=== PATIENT | female | born 1925 | race Hispanic/Latino ===

== ENCOUNTER 2016-11-05 19:48 | Emergency (ER) | payer MEDICARE, BC ==
[2016-11-05 19:49] VITALS: PULSE 89; BMI 18.8
[2016-11-05] MEDS ORDERED: Tramadol 25 mg PO STA (20:54)
--- NOTE | 2016-11-05 21:31 | C.PDOC ---
History Of Present Illness 89 yo female come in accompanied by son for evaluation of facial contusion, Left knee pain developed 8 days ago after sustained fall. Pt reports, " im 89 and Im getting dizzy a lot and fall frequently". As per pt, " was in bathroom, urinated, got up and felt dizzy and fell down face first and on my knees". Pt admits, left side of face was bruised and swollen that improved with time. Gradually developed left knee pain, constant, severe, although was able to ambulate with some discomfort over Left knee and assistance of cane. Otherwise, pt denies LOC, syncope, denies severe headache, new visual changes, focal deficits, neck pain, CP, SOB, abd. pain, vomiting, denies obvious deformity, new weakness, sensory or vascular deficits to B/L UEs and LEs. At the time of evaluation, pt is AAO#3, appears comfortable, not n any apparent distress. HTN noted on triage, pt admits, takes her BP medication daily. As per son, " under lots of stress now and in pain". Time Seen by Provider: 11/05/16 20:28 Chief Complaint (Nursing): Lower Extremity Problem/Injury History Per: Patient History/Exam Limitations: no limitations Onset/Duration Of Symptoms: Days (8) Past Medical History Reviewed: Historical Data, Nursing Documentation, Vital Signs Vital Signs: Last Vital Signs Temp 98 F 11/05/16 22:37 Pulse 80 11/05/16 22:37 Resp 18 11/05/16 22:37 BP 164/82 H 11/05/16 22:37 Pulse Ox 99 11/05/16 23:02 - Medical History PMH: Arthritis, HTN, Hypercholesterolemia, Hypothyroidism - [facility] Procedures BYPASS SIGMOID COLON TO CUTANEOUS, OPEN APPROACH (02/18/16) RESECTION OF LEFT LARGE INTESTINE, OPEN APPROACH (02/18/16) Family History: States: No Known Family Hx - Social History Hx Tobacco Use: No Hx Alcohol Use: No Hx Substance Use: No - Immunization History Hx Tetanus Toxoid Vaccination: No Hx Influenza Vaccination: No Hx Pneumococcal Vaccination: No Review Of Systems Except As Marked, All Systems Reviewed And Found Negative. Eyes: Negative for: Vision Change Cardiovascular: Negative for: Chest Pain Respiratory: Negative for: Shortness of Breath Gastrointestinal: Negative for: Abdominal Pain Musculoskeletal: Positive for: Other ((+) Left knee pain ). Negative for: Neck Pain Neurological: Negative for: Weakness, Numbness, Headache Physical Exam - Physical Exam Appears: Well, Non-toxic, No Acute Distress Skin: Warm, No Rash Head: Normacephalic, No Tenderness, No Abrasion, Other (trace ecchymoses over Left zygoma. NO palpable deformity.) Eye(s): bilateral: PERRL Ear(s): Bilateral: Normal Nose: No Discharge, No Epistaxis, No Deformity Oral Mucosa: Moist, No Drooling Tongue: Normal Appearing Lips: Normal Appearing Neck: No Step Off Deformity, Supple Chest: Symmetrical, No Deformity, No Tenderness Respiratory: No Decreased Breath Sounds, No Accessory Muscle Use, No Stridor, No Wheezing Gastrointestinal/Abdominal: Soft, No Tenderness, No Distention Back: No Vertebral Tenderness, Paraspinal Tenderness (mild Left sided lumbar paraspinal tenderness. No midline tenderness, no skin changes.) Extremity: Tenderness (Left knee diffuse tenderness with mod edema, warmth. Discomfort on Left knee flexion due to pain. No erythema, no palpable deformity , no neurovascular deficits distally to injury.), No Deformity Neurological/Psych: Oriented x3, Normal Speech, Normal Motor, Normal Sensation, Normal Reflexes ED Course And Treatment O2 Sat by Pulse Oximetry: 99 Pulse Ox Interpretation: Normal - CT Scan/US CT - Cervical Spine Other Rad Studies (CT/US): Radiology Report Reviewed CT/US Interpretation: FINDINGS: Vertebrae: There is exaggeration of the cervical lordosis. There is no prevertebral soft tissue. swelling. Bony structures are diffusely osteopenic. There are no fractures. There are degenerative. changes at all levels. There is narrowing of the predental space. There is ankylosis of the C2, C3. and C4 facet joints. There is marked narrowing of the C4-5 facet joints. There is ankylosis of C5/C6. facet joints on the right. There is narrowing of all remaining facet joints. There is disc space. narrowing at all levels.Spinous processes align in the expected fashion. Discs/spinal canal/neural foramina: See above. Soft tissues: See above. Thyroid: Thyroid is not optimally demonstrated. Lung apices: There is scarring at the lung apices. IMPRESSION: Osteopenia and degenerative change no fracture seen. Thank you for allowing us to participate in the care of your patient. Dictated and Authenticated by: Leatha Reina MD. 2016 10:40 PM Eastern Time ([place] & [place]) CT - Lower Extremity Other Rad Studies (CT/US): Radiology Report Reviewed CT/US Interpretation: FINDINGS: A small knee joint effusion is present. There are degenerative changes in the osseous structures. Extensive osteophyte formation is present. Joint space narrowing of the medial femoral tibial component. No fractures. No dislocations. No osseous lesions. Vascular calcifications. IMPRESSION: No acute fractures. Thank you for allowing us to participate in the care of your patient. Dictated and Authenticated by: Eileen Tamez MD. 11/05/2016 10:55 PM Eastern Time ([place] & [place]) CT - Head Other Rad Studies (CT/US): Radiology Report Reviewed CT/US Interpretation: Orbits: Orbital contents are unremarkable. IMPRESSION: Atrophy and small vessel disease, no acute intracranial abnormality. Thank you for allowing us to participate in the care of your patient. Dictated and Authenticated by: Leatha Reina MD. 11/05/2016 10:29 PM Eastern Time ([place] & [place]) CT - Maxillofacial Other Rad Studies (CT/US): Radiology Report Reviewed CT/US Interpretation: Orbits: Orbital contents are unremarkable. Sinuses: There is an air-fluid level in the right sphenoid sinus. There is minimal mucoperiosteal. thickening in ethmoid air cells. Mastoid air cells: Middle ears and mastoids are well-aerated. Dental: Patient is edentulous. Brain: There are atrophic intracranial changes. IMPRESSION: No acute osseous abnormality. Additional findings as described above. Thank you for allowing us to participate in the care of your patient. Dictated and Authenticated by: Leatha Reina MD. 11/05/2016 10:35 PM Eastern Time ([place] & [place]) Progress Note: On re-evaluation, pt is afebrile, hemodynamiclay stable. Non- toxic. head: (+) trace ecchymoses left upper face. NO deformity. Eyes: no pain or limitation on extraocula movement, no deformity. Neck: (-) midline tenderness. Lungs: CTA B/L, BS equal B/L. ABd: benign. Left LE: Exam c/w knee contusion, no deformity, no neurovascular deficits. Imaging review and c/ w with contusion, no acute fx or other acute abnormalities noted. Pt has clinical findings c/w head injury, facial contusion, Left knee contusion/DJD. Knee immobilizer applied. Pt and family advised and ref. to F/u with PMD, Ortho in 2-3 days for re-eval. return to ED if any worsneing or new changes. Medical Decision Making Medical Decision Making: PLAN: * CT - Cervical Spine, Lower Extremity, Head, Maxillofacial * Tramadol PO Disposition Counseled Patient/Family Regarding: Studies Performed, Diagnosis, Need For Followup, Rx Given - Disposition Referrals: Naina Mac MD [Medical Doctor] - Joao German III, MD [Staff Provider] - Disposition: HOME/ ROUTINE Disposition Time: 23:00 Condition: STABLE Additional Instructions: bedrest for 1 week RICE-rest,ice,compression, elevation Knee immobilizer for 1-2 weeks take tylenol as need for pain Follow up with PMD, Orthopedist in 1-2 days for re-evaluation. Return to ED if any worsening or new changes. Prescriptions: traMADol [Ultram] 25 mg PO TID #10 tab Instructions: Knee Sprain (ED), Head Injury (ED), Facial Contusion (ED) - Clinical Impression Clinical Impression: Head injury, Facial contusion, Knee contusion - PA / DRAGGER OUT / Resident Statement MD/DO has reviewed & agrees with the documentation as recorded. - Scribe Statement The provider has reviewed the documentation as recorded by the Scribe Tanya Magallon All medical record entries made by the Scribe were at my direction and personally dictated by me. I have reviewed the chart and agree that the record accurately reflects my personal performance of the history, physical exam, medical decision making, and the department course for this patient. I have also personally directed, reviewed, and agree with the discharge instructions and disposition.
--- NOTE | 2016-11-05 22:29 | CT ---
EXAM: CT Head Without Intravenous Contrast CLINICAL HISTORY: 89 years old, female; Pain and injury or trauma; Fall; Initial encounter; Concussion / head injury; Headache and other: Right frontal bone TECHNIQUE: Axial computed tomography images of the head/brain without intravenous contrast. This CT exam was performed using one or more of the following dose reduction techniques: automated exposure control, adjustment of the mA and/or kV according to patient size, and/or use of iterative reconstruction technique. EXAM DATE/TIME: 11/05/2016 8:51 PM COMPARISON: There are no prior studies for comparison. FINDINGS: Brain: There is dilatation of sulci gyri and ventricles. There is no midline shift. There is decreased attenuation in periventricular white matter. There are no focal masses. There are no focal hemorrhages. Beard-white differentiation is visualized. Ventricles: See above. Bones: Cranial vault is intact. Soft tissues: There is minimal right frontal scalp bruising Sinuses: There is no acute sinusitis. Ears and mastoids: Middle ears and mastoids are unremarkable. Orbits: Orbital contents are unremarkable. IMPRESSION: Atrophy and small vessel disease, no acute intracranial abnormality
--- NOTE | 2016-11-05 22:36 | CT ---
EXAM: CT Maxillofacial Without Intravenous Contrast CLINICAL HISTORY: 89 years old, female; Pain and injury or trauma; Fall; Initial encounter; Concussion /head injury; Without loss of consciousness; Other: Right frontal bone TECHNIQUE: Axial computed tomography images of the face without intravenous contrast. This CT exam was performed using one or more of the following dose reduction techniques: automated exposure control, adjustment of the mA and/or kV according to patient size, and/or use of iterative reconstruction technique. Coronal and sagittal reformatted images were created and reviewed. EXAM DATE/TIME: 11/05/2016 9:23 PM COMPARISON: There are no prior studies for comparison. FINDINGS: Bones/joints: There age-indeterminate nasal bone fractures. There is no nasal soft tissue swelling. No acute facial bone fractures are identified. There degenerative changes of the temporomandibular joints. There degenerative changes about the mandibular symphysis. There is exaggeration of the cervical lordosis. There are degenerative changes in the cervical spine. Soft tissues: There is no focal soft tissue swelling. Orbits: Orbital contents are unremarkable. Sinuses: There is an air-fluid level in the right sphenoid sinus. There is minimal mucoperiosteal thickening in ethmoid air cells. Mastoid air cells: Middle ears and mastoids are well-aerated. Dental: Patient is edentulous. Brain: There are atrophic intracranial changes. IMPRESSION: No acute osseous abnormality Additional findings as described above.
[2016-11-05 22:39] VITALS: BP 164/82; PULSE 80; RESP 18; TEMP 98
--- NOTE | 2016-11-05 22:40 | CT ---
EXAM: CT Cervical Spine Without Intravenous Contrast CLINICAL HISTORY: 89 years old, female; Pain; Neck pain; Additional info: Injury TECHNIQUE: Axial computed tomography images of the cervical spine without intravenous contrast. This CT exam was performed using one or more of the following dose reduction techniques: automated exposure control, adjustment of the mA and/or kV according to patient size, and/or use of iterative reconstruction technique. Coronal and sagittal reformatted images were created and reviewed. EXAM DATE/TIME: 11/05/2016 8:51 PM COMPARISON: [place] - DENSITOMETRY HIP SPINE 05/31/2015 12:00:00 PM FINDINGS: Vertebrae: There is exaggeration of the cervical lordosis. There is no prevertebral soft tissue swelling. Bony structures are diffusely osteopenic. There are no fractures. There are degenerative changes at all levels. There is narrowing of the predental space. There is ankylosis of the C2, C3 and C4 facet joints. There is marked narrowing of the C4-5 facet joints. There is ankylosis of C5/C6 facet joints on the right. There is narrowing of all remaining facet joints. There is disc space narrowing at all levels.Spinous processes align in the expected fashion. Discs/spinal canal/neural foramina: See above. Soft tissues: See above. Thyroid: Thyroid is not optimally demonstrated. Lung apices: There is scarring at the lung apices. IMPRESSION: Osteopenia and degenerative change no fracture seen
[2016-11-05 22:45] VITALS: O2SAT 99
--- NOTE | 2016-11-05 22:56 | CT ---
EXAM: CT Left Lower Extremity Without Intravenous Contrast, Knee CLINICAL HISTORY: 89 years old, female; Pain; Knee; Left; Additional info: Left knee injury TECHNIQUE: Axial computed tomography images of the left knee without intravenous contrast. This CT exam was performed using one or more of the following dose reduction techniques: automated exposure control, adjustment of the mA and/or kV according to patient size, and/or use of iterative reconstruction technique. Coronal and sagittal reformatted images were created and reviewed. EXAM DATE/TIME: 11/05/2016 8:51 PM COMPARISON: No relevant prior studies available. FINDINGS: A small knee joint effusion is present. There are degenerative changes in the osseous structures. Extensive osteophyte formation is present. Joint space narrowing of the medial femoral tibial component. No fractures. No dislocations. No osseous lesions. Vascular calcifications. IMPRESSION: No acute fractures.
== END 2016-11-05 23:20 | disposition home or self-care (01) ==
LOC: C.ER 19:48
DX: S00.83XA Contusion of other part of head, initial encounter (principal); S80.02XA Contusion of left knee, initial encounter; W18.39XA Other fall on same level, initial encounter; Z91.81 History of falling; Y92.002 Bathroom of unspecified non-institutional (private) residence as the place of occurrence of the external cause

== ENCOUNTER 2017-02-28 15:44 | Inpatient (IN) | payer BC, MEDICARE ==
[2017-02-28 15:44] VITALS: BMI 18.8
--- NOTE | 2017-02-28 16:28 | C.PDOC ---
History Of Present Illness <Brenda Shook - Last Filed: 02/28/17 18:52> <Katie Dickson - Last Filed: 02/28/17 20:58> 89 yr old female presents to the ER with complaints of mid sternal chest pain since last night around 10pm. Patient states the pain radiates to back and worsened with deep breathing. Patient denies trauma, fever, diaphoresis, syncope , nausea, vomiting, weakness or numbness. (Brenda Shook) History Per: Patient History/Exam Limitations: no limitations Onset/Duration Of Symptoms: Days <Brenda Shook - Last Filed: 02/28/17 18:52> <Katie Dickson - Last Filed: 02/28/17 20:58> Time Seen by Provider: 02/28/17 16:04 Chief Complaint (Nursing): Chest Pain Past Medical History Reviewed: Historical Data, Nursing Documentation, Vital Signs - Medical History PMH: Arthritis, HTN, Hypercholesterolemia, Hypothyroidism Family History: States: No Known Family Hx - Social History Hx Tobacco Use: No Hx Alcohol Use: No Hx Substance Use: No - Immunization History Hx Tetanus Toxoid Vaccination: No Hx Influenza Vaccination: No Hx Pneumococcal Vaccination: No <Brenda Shook - Last Filed: 02/28/17 18:52> Review Of Systems Except As Marked, All Systems Reviewed And Found Negative. Constitutional: Negative for: Fever Cardiovascular: Positive for: Chest Pain (Mid sternal chest pain radiating to back) Gastrointestinal: Negative for: Nausea, Vomiting Neurological: Negative for: Weakness, Numbness <Brenda Shook - Last Filed: 02/28/17 18:52> Physical Exam - Physical Exam Appears: Non-toxic, No Acute Distress, Chronically Ill, Other ((+) Cachectic appearing) Skin: Warm, Dry, No Rash Head: Atraumatic, Normacephalic Eye(s): bilateral: Normal Inspection Oral Mucosa: Moist Neck: Normal ROM, Supple Chest: Symmetrical, No Tenderness Cardiovascular: Rhythm Irregular, No Friction Rub, No Murmur Respiratory: Normal Breath Sounds, No Rales, No Rhonchi, No Wheezing Gastrointestinal/Abdominal: Normal Exam, Soft, No Tenderness, No Guarding, No Rebound Back: No CVA Tenderness, No Vertebral Tenderness Extremity: Normal ROM, No Calf Tenderness, No Swelling Neurological/Psych: Oriented x3, Normal Speech, Normal Motor, Normal Sensation Gait: Steady <Brenda Shook - Last Filed: 02/28/17 18:52> ED Course And Treatment - Laboratory Results Result Diagrams: 02/28/17 16:52 02/28/17 16:52 ECG: Interpreted By Me, Viewed By Me ECG Rhythm: Atrial Fibrillation Interpretation Of ECG: LVH. Rate From EC (BPM) O2 Sat by Pulse Oximetry: 100 (RA) Pulse Ox Interpretation: Normal <Brenda Shook - Last Filed: 02/28/17 18:52> - Laboratory Results Result Diagrams: 02/28/17 16:52 02/28/17 16:52 <Katie Dickson - Last Filed: 02/28/17 20:58> Medical Decision Making <Brenda Shook - Last Filed: 02/28/17 18:52> <Katie Dickson - Last Filed: 02/28/17 20:58> Medical Decision Making: PLAN: * CXR * EKG * Troponin * CBC * CMP * BNP The patient has a history of Afib and has not been taking her Digoxin. The patient is rate controlled in the 90's. The patient was found to be hypokalemic , potassium given. CT chest was ordered to rule out PE. (Brenda Shook) Disposition - Disposition Disposition Time: 18:53 <Brenda Shook - Last Filed: 02/28/17 18:52> Discussed With : Ulysses Torres Comment: accepted the pt on her service and took over the care at 8:57 PM Doctor Will See Patient In The: Hospital Counseled Patient/Family Regarding: Studies Performed, Smoking Cessation - POA Present On Arrival: Poor Glycemic Control <Katie Dickson - Last Filed: 02/28/17 20:58> - Disposition Disposition: HOSPITALIZED Condition: FAIR Forms: [facility] (Greenlandic) - Clinical Impression Clinical Impression: Hypokalemia, Chest pain, Atrial fibrillation, Hiatal hernia - PA / PHYSIOTHERAPIST'S ASSISTANT / Resident Statement MD/DO has reviewed & agrees with the documentation as recorded. - Scribe Statement The provider has reviewed the documentation as recorded by the Scribe <Brenda Shook - Last Filed: 02/28/17 18:52> <Katie Dickson - Last Filed: 02/28/17 20:58> - Scribe Statement Tanya Magallon All medical record entries made by the Scribe were at my direction and personally dictated by me. I have reviewed the chart and agree that the record accurately reflects my personal performance of the history, physical exam, medical decision making, and the department course for this patient. I have also personally directed, reviewed, and agree with the discharge instructions and disposition. (Brenda Shook) Physician Patient Turnover Patient Signed Over To: Katie Dickson Handoff Comments: Pending CT chest and disposition <Brenda Shook - Last Filed: 02/28/17 18:52> Decision To Admit <Brenda Shook - Last Filed: 02/28/17 18:52> - Pt Status Changed To: Hospital Disposition Of: Observation - . Bed Request Type: Telemetry Admitting Physician: Ulysses Torres <Katie Dickson - Last Filed: 02/28/17 20:58> - . Patient Diagnosis: Hypokalemia, Chest pain, Atrial fibrillation, Hiatal hernia
[2017-02-28 16:57] LABS: BASO % 0.3 % (0.0-2.0); HEMATOCRIT 37.4 % (34.0-47.0); LYMPH # 0.7 K/uL (1.0-4.3); LYMPH % 7.7 % (20.0-40.0); MEAN CELL VOLUME 85.8 fL (81.0-99.0); MEAN CORPUSCULAR HEMOGLOBIN 29.6 pg (27.0-31.0); MEAN CORPUSCULAR HGB CONC 34.5 g/dL (33.0-37.0); MEAN PLATELET VOLUME 7.7 fL (7.2-11.7); MONO # 0.8 K/uL (0.0-0.8); MONO % 8.9 % (0.0-10.0); PLATELET COUNT 286 K/uL (130-400); RED CELL DISTRIBUTION WIDTH 14.9 % (11.5-14.5); WHITE BLOOD COUNT 9.2 K/uL (4.8-10.8)
[2017-02-28 17:10] LABS: ALB/GLOB RATIO 1.1 (1.0-2.1); ALKALINE PHOSPHATASE 58 U/L (38-126); ALT/SGPT 18 U/L (9-52); AST/SGOT 23 U/L (14-36); BLOOD UREA NITROGEN 12 mg/dL (7-17); CALCIUM 9.1 mg/dl (8.6-10.4); CARBON DIOXIDE 32 mmol/L (22-30); CHLORIDE 93 mmol/L (98-107); GFR AFRICAN-AMERICAN > 60; GLUCOSE,RANDOM 150 mg/dL (65-105); POTASSIUM 2.7 mmol/L (3.6-5.2); SODIUM 138 mmol/L (132-148); TOTAL PROTEIN 7.9 g/dL (6.3-8.3)
[2017-02-28] MEDS ORDERED: Potassium Chloride 20 mEq ER Tab PO STA (17:15)
[2017-02-28] MEDS ORDERED: Iodixanol 320 MG/ML 100 ML BOTTLE IV ONE (17:42)
--- NOTE | 2017-02-28 17:44 | RAD ---
PROCEDURE: CHEST RADIOGRAPH, 1 VIEW HISTORY: chest pain COMPARISON: 02/25/2016 FINDINGS: LUNGS: No pulmonary infiltrate. PLEURA: No pneumothorax or pleural fluid seen. CARDIOVASCULAR: Normal heart size. Large hiatal hernia. OSSEOUS STRUCTURES: No significant abnormalities. VISUALIZED UPPER ABDOMEN: Normal. OTHER FINDINGS: None. IMPRESSION: No acute infiltrate. Large hiatal hernia.
[2017-02-28] MEDS ORDERED: Aspirin 325 mg EC Tablets PO ONE (17:54)
[2017-02-28] MEDS ORDERED: Potassium Chloride 20 mEq ER Tab PO ONE (17:54)
[2017-02-28 18:01] LABS: NEUTROPHIL 84 % (50-75); TOTAL CELLS COUNTED 100
--- NOTE | 2017-02-28 20:01 | CT ---
EXAM: CT Angiography Chest With Intravenous Contrast CLINICAL HISTORY: 89 years old, female; Pain; Chest wall pain; Additional info: Chest, pleuritic pain TECHNIQUE: Axial computed tomographic angiography images of the chest with intravenous contrast using pulmonary embolism protocol. All CT scans at this facility use one or more dose reduction techniques, viz.: automated exposure control; ma/kV adjustment per patient size (including targeted exams where dose is matched to indication; i.e. head); or iterative reconstruction technique. MIP reconstructed images were created and reviewed. Coronal and sagittal reformatted images were created and reviewed. CONTRAST: 100 mL of VISIPAQUE administered intravenously. COMPARISON: There are no prior studies for comparison. Exam Date/Time: 02/28/2017 4:45 PM FINDINGS: Heart, Aorta and Pulmonary arteries: The heart is mildly enlarged. Aortic caliber is normal. There are calcifications in the arch. There are coronary artery calcifications. Main pulmonary artery is normal in caliber. Right pulmonary artery is mildly dilated, 2.5 cm in diameter. There is only mild prominence of the left main pulmonary artery, 1.9 cm in diameter. The There are no pulmonary emboli. Lungs and pleural spaces: Trachea and main bronchi are patent. Lungs are hyperinflated. There is apical pleural-parenchymal scarring bilaterally. There is compressive atelectasis at both lung bases. There is pleural thickening bilaterally. There is nodular thickening along the fissures bilaterally. There are no effusions. Mediastinum: The esophagus is unremarkable. There is a very large hiatal hernia. Majority of the stomach is intrathoracic. There is colon in the hiatal hernia. There is no pathologic mediastinal or hilar adenopathy Thyroid: Thyroid is not optimally demonstrated. Bones/joints: There is exaggeration of the thoracic kyphosis. There is an incompletely imaged convex left thoracolumbar curve. Bony structures are osteopenic. There are degenerative changes in the spine. Distortion of the thoracic cage limits evaluation of the ribs. No acute displaced fractures are identified. Soft tissues: unremarkable Upper abdomen: Areas a cyst in the right lobe of the liver. IMPRESSION: Large hiatal hernia containing the majority of the stomach and portion of the transverse colon with adjacent bilateral lower lobe compressive atelectasis; mild cardiomegaly and atherosclerotic disease, no aneurysm, dissection or pulmonary embolus; kyphoscoliosis, osteopenia and degenerative change Additional findings as described above.
[2017-02-28 23:06] LABS: BLOOD UREA NITROGEN 12 mg/dL (7-17); CALCIUM 8.6 mg/dl (8.6-10.4); CARBON DIOXIDE 31 mmol/L (22-30); CHLORIDE 97 mmol/L (98-107); GFR AFRICAN-AMERICAN > 60; GLUCOSE,RANDOM 157 mg/dL (65-105); MAGNESIUM 1.4 mg/dL (1.6-2.3); POTASSIUM 3.6 mmol/L (3.6-5.2); SODIUM 137 mmol/L (132-148)
[2017-03-01] MEDS: Levothyroxine 75 MCG TAB PO SCH (06:28)
[2017-03-01] MEDS: Magnesium Sulfate 1 gm in D5W 1 GM/100 ML BAG IVPB SCH ×2 (12:21→13:18)
--- NOTE | 2017-03-01 13:24 | CP.PCM.PN ---
Subjective - Date & Time of Evaluation Date of Evaluation: 03/01/17 Time of Evaluation: 12:30 - Subjective Subjective: H&P dictated #[id number] Objective - Vital Signs/Intake and Output Vital Signs (last 24 hours): Temp Pulse Resp BP Pulse Ox 98.8 F 74 18 113/66 96 03/01/17 08:05 03/01/17 13:20 03/01/17 08:05 03/01/17 13:20 03/01/17 08:05 Intake and Output: 03/01/17 03/01/17 06:59 18:59 Intake Total 200 Balance 200 - Medications Medications: Current Medications Aspirin (Ecotrin) 81 mg PO DAILY [facility] Last Admin: 03/01/17 10:21 Dose: 81 mg Digoxin (Lanoxin) 0.125 mg PO DAILY@1800 [facility] Diltiazem HCl (Cardizem) 30 mg PO Q8 [facility] Last Admin: 03/01/17 13:20 Dose: 30 mg Levothyroxine Sodium (Synthroid) 75 mcg PO DAILY@0630 [facility] Last Admin: 03/01/17 06:28 Dose: 75 mcg Pantoprazole Sodium (Protonix Inj) 40 mg IVP DAILY [facility] Last Admin: 03/01/17 10:20 Dose: 40 mg Pneumococcal Polyvalent Vaccine (Pneumovax 23 Vaccine) 0.5 ml IM .ONCE ONE Stop: 03/03/17 10:01 Rosuvastatin Calcium (Crestor) 10 mg PO HS [facility] - Labs Labs: 02/28/17 22:52 PT 11.1 SECONDS (9.7-12.2) 02/28/17 16:52 INR 1.0 02/28/17 16:52 APTT 28 SECONDS (21-34) 02/28/17 16:52
[2017-03-01] MEDS: Digoxin 125 mcg (0.125 mg) Tab PO SCH (17:34)
--- NOTE | 2017-03-01 19:58 | CP.PCM.CON ---
History of Present Illness - History of Present Illness History of Present Illness: Reason For Consultation: Chest Pain and A Fib 89 yr old female presents to the ER with complaints of mid sternal chest pain since last night around 10pm. Patient states the pain radiates to back and worsened with deep breathing. Patient denies trauma, fever, diaphoresis, syncope , nausea, vomiting, weakness or numbness. Past Medical History Reviewed: Historical Data, Nursing Documentation, Vital Signs - Medical History PMH: Arthritis, HTN, Hypercholesterolemia, Hypothyroidism Family History: States: No Known Family Hx - Social History Hx Tobacco Use: No Hx Alcohol Use: No Hx Substance Use: No - Immunization History Hx Tetanus Toxoid Vaccination: No Hx Influenza Vaccination: No Hx Pneumococcal Vaccination: No Review Of Systems Except As Marked, All Systems Reviewed And Found Negative. Constitutional: Negative for: Fever Cardiovascular: Positive for: Chest Pain (Mid sternal chest pain radiating to back) Gastrointestinal: Negative for: Nausea, Vomiting Neurological: Negative for: Weakness, Numbness Physical Exam - Physical Exam Appears: Non-toxic, No Acute Distress, Chronically Ill, Other ((+) Cachectic appearing) Skin: Warm, Dry, No Rash Head: Atraumatic, Normacephalic Eye(s): bilateral: Normal Inspection Oral Mucosa: Moist Neck: Normal ROM, Supple Chest: Symmetrical, No Tenderness Cardiovascular: Rhythm Irregular, No Friction Rub, No Murmur Respiratory: Normal Breath Sounds, No Rales, No Rhonchi, No Wheezing Gastrointestinal/Abdominal: Normal Exam, Soft, No Tenderness, No Guarding, No Rebound Back: No CVA Tenderness, No Vertebral Tenderness Extremity: Normal ROM, No Calf Tenderness, No Swelling Neurological/Psych: Oriented x3, Normal Speech, Normal Motor, Normal Sensation Gait: Steady Past Patient History - Infectious Disease Hx of Infectious Diseases: None - Past Medical History & Family History Past Medical History?: Yes - Past Social History Smoking Status: Never Smoked - CARDIAC Hx Cardiac Disorders: Yes Hx Hypercholesterolemia: Yes Hx Hypertension: Yes - PULMONARY Hx Respiratory Disorders: No - NEUROLOGICAL Hx Neurological Disorder: No - HEENT Hx HEENT Problems: No - RENAL Hx Chronic Kidney Disease: No - ENDOCRINE/METABOLIC Hx Endocrine Disorders: Yes Hx Hypothyroidism: Yes - HEMATOLOGICAL/ONCOLOGICAL Hx Blood Disorders: No - INTEGUMENTARY Hx Dermatological Problems: No - MUSCULOSKELETAL/RHEUMATOLOGICAL Hx Musculoskeletal Disorders: Yes Hx Arthritis: Yes Hx Falls: Yes - GASTROINTESTINAL Hx Gastrointestinal Disorders: Yes Hx Diverticulitis: Yes Other/Comment: left colostomy - GENITOURINARY/GYNECOLOGICAL Hx Genitourinary Disorders: No - PSYCHIATRIC Hx Psychophysiologic Disorder: No Hx Substance Use: No - SURGICAL HISTORY Hx Surgeries: Yes Other/Comment: colon resection with left colostomy - ANESTHESIA Hx Anesthesia: Yes Hx Anesthesia Reactions: No Hx Malignant Hyperthermia: No Meds Allergies/Adverse Reactions: Allergies Allergy/AdvReac Type Severity Reaction Status Date / Time Sulfa (Sulfonamide Allergy Mild Verified 11/05/16 20:17 Antibiotics) - Medications Medications: Current Medications Aspirin (Ecotrin) 81 mg PO DAILY [facility] Last Admin: 03/01/17 10:21 Dose: 81 mg Digoxin (Lanoxin) 0.125 mg PO DAILY@1800 [facility] Last Admin: 03/01/17 17:34 Dose: 0.125 mg Diltiazem HCl (Cardizem) 30 mg PO Q8 [facility] Last Admin: 03/01/17 13:20 Dose: 30 mg Heparin Sodium (Porcine) (Heparin) 3,000 units SC Q12 [facility] Levothyroxine Sodium (Synthroid) 75 mcg PO DAILY@0630 [facility] Last Admin: 03/01/17 06:28 Dose: 75 mcg Pantoprazole Sodium (Protonix Inj) 40 mg IVP DAILY [facility] Last Admin: 03/01/17 10:20 Dose: 40 mg Pneumococcal Polyvalent Vaccine (Pneumovax 23 Vaccine) 0.5 ml IM .ONCE ONE Stop: 03/03/17 10:01 Rosuvastatin Calcium (Crestor) 10 mg PO [facility] Results - Vital Signs Recent Vital Signs: Last Vital Signs Temp 98.8 F 03/01/17 08:05 Pulse 80 03/01/17 18:00 Resp 18 03/01/17 08:05 BP 113/66 03/01/17 13:20 Pulse Ox 96 03/01/17 08:05 - Labs Result Diagrams: 02/28/17 16:52 02/28/17 22:52 Labs: Laboratory Results - last 24 hr 02/28/17 03/01/17 03/01/17 22:52 08:10 19:19 APTT 21 D Sodium 137 Potassium 3.6 Chloride 97 L Carbon Dioxide 31 H Anion Gap 13 BUN 12 Creatinine 0.6 L Est GFR ( Amer) > 60 Est GFR (Non-Af Amer) > 60 Random Glucose 157 H Calcium 8.6 Magnesium 1.4 L Troponin I < 0.0120 < 0.0120 Assessment & Plan - Assessment and Plan (Free Text) Assessment: 1. Chest Pain: Non cardiac Trops negative CTA negative for PE and aortic dissection 2. HTN: Controlled 3. A Fib: Basing on [id number] score patient requires anticoagulation for stroke prevention D/W Patient and the son at the bedside. Patient afraid of bleeding Explained to patient benefits outweigh the risk She wants to think aboout it For now will continue ASA 81 daily. If patient agrees for AC will start Eliquis 2.5 mg po bid and stop ASA Re address the issue tomorrow
--- NOTE | 2017-03-01 23:05 | HP ---
CHIEF COMPLAINT: Chest pain radiating to the back associated with nausea since yesterday. HISTORY OF PRESENT ILLNESS: The patient is an 89-year-old female with past medical history of hypertension, hyperlipidemia, hypothyroidism, osteoarthritis, history of colon resection for perforation of the diverticula and sepsis, who developed pulmonary edema and atrial fibrillation post surgery in February 2016, was on digoxin and Cardizem since then. Has been following up with Dr. Mac as primary care physician and Dr. Allen as catheterization laboratory technician. Came into the ED with complaints of back pain initially and this radiating to the chest associated with nausea. Pain is worse on deep inspiration. Pain was continuous lasting for many hours, which made her come to the emergency room, it is not associated with any nausea, vomiting, or dizziness or diaphoresis. The pain was severe. In the ED, the patient received treatment, the chest symptoms improved and the patient is being admitted for further management. When I examined, the patient is feeling much better. Denies any headache, dizziness. Her chest pain is better, but complaining of minimal pain on deep inspiration. Denies any nausea, vomiting, abdominal pain, diarrhea or constipation. Denies any urinary complaint. Denies any leg pains or leg cramps. Denies any other neurologic symptoms. PAST MEDICAL HISTORY: As described; hypertension, hyperlipidemia, hypothyroidism, osteoarthritis. FAMILY HISTORY: Mother in her 30s from sepsis. PERSONAL HISTORY: She is living with her son, retired. SOCIAL HISTORY: Denies smoking, alcohol, or drug abuse. ALLERGIES: SHE IS ALLERGIC TO SULFA. MEDICATIONS: Include tramadol 25 mg p.o. t.i.d., Cardizem 30 mg p.o. q. 8 hours, Synthroid 75 mcg p.o. daily, Lasix 20 mg p.o. q. 12 hours, digoxin 0.125 mg p.o. daily, Lipitor 20 mg daily, aspirin 81 mg daily. REVIEW OF SYSTEMS: As described in history of present illness. All other systems reviewed and were found to be negative. PHYSICAL EXAMINATION: GENERAL: Elderly thin-built female lying in bed in no acute distress. VITAL SIGNS: Blood pressure 111/65, pulse 74, respirations 18, temperature 98.8 degrees Fahrenheit, O2 sat 96% on room air. HEENT: Pupils are equal, round, and reacting to light and accommodation. Extraocular muscles are intact. No icterus. No pallor. No oral thrush. No pharyngeal congestion. NECK: Supple, no JVD. LUNGS: Bilateral vesicular breath sounds. No wheezing, no rhonchi. CARDIOVASCULAR SYSTEM: S1 and S2 present, regular. ABDOMEN: Soft, nontender. Bowel sounds present. No guarding. No rigidity. No rebound tenderness noted. CENTRAL NERVOUS SYSTEM: Alert, awake, and oriented x3. No focal deficits noted. EXTREMITIES: No edema. Palpable peripheral pulses. LABORATORY DATA: Labs done from ED WBC 9.2, hemoglobin 12.9, hematocrit 37.4, platelets 286. PT 11.1, INR 1.0, PTT 28. Sodium 138, potassium 2.7, chloride 93, bicarb 32, BUN 12, creatinine 0.6, glucose 150, calcium 9.1, magnesium 1.4. Cardiac enzymes x3 negative. Digoxin less than 0.4. Chest x-ray negative for any infiltrate that has large hiatal hernia containing the majority of the stomach and portion of the transverse colon with adjacent bilateral lower lobe, compressive atelectasis, mild cardiomegaly and atherosclerotic disease, no aneurysm dissection or pulmonary embolus, kyphoscoliosis, osteopenia and degenerative change. EKG consistent with atrial fibrillation, rate controlled at 95 beats per minute. ASSESSMENT: Elderly female with history of hypertension, hyperlipidemia, hypothyroidism, osteoarthritis, status post colon resection for diverticular perforation, history of atrial fibrillation, came in with chest pain radiating to the back worse on deep inspiration and the patient is being admitted for further management. 1. Chest pain in a patient with multiple risk factors, rule out coronary artery disease. Probably, her chest pain now might be related to rule out hiatal hernia. 2. Hypokalemia. 3. Hiatal hernia. 4. Hypothyroidism. 5. Hyperlipidemia. 6. Osteoarthritis. 7. Chronic atrial fibrillation. PLAN: The patient is being admitted on telemetry. Serial cardiac enzymes were done. We will check serial EKG. Check echocardiogram. Continue with her home medication. She is being supplemented with potassium, it is correct and her potassium is 3.6. Supplement magnesium for hypomagnesemia. Give extra dose of digoxin as her dig level is low. We will obtain cardiology evaluation with Dr. Allen. Give Protonix 40 mg IV daily for GI prophylaxis. We will give Maalox as needed. Check lipid panel, TSH level. Continue with her current TSH level. We will add further recommendation as her clinical course progresses. Ulysses Torres MD
[2017-03-02] MEDS: Levothyroxine 75 MCG TAB PO SCH (06:10)
[2017-03-02 09:37] LABS: THYROID STIMULATING HORMONE 8.89 mIU/L (0.46-4.68)
--- NOTE | 2017-03-02 13:16 | CP.PCM.PN ---
Subjective - Date & Time of Evaluation Date of Evaluation: 03/02/17 Time of Evaluation: 12:10 - Subjective Subjective: Progress note dictated #[id number] Objective - Vital Signs/Intake and Output Vital Signs (last 24 hours): Temp Pulse Resp BP Pulse Ox 98.3 F 67 18 130/73 97 03/02/17 07:30 03/02/17 07:30 03/02/17 07:30 03/02/17 07:30 03/02/17 07:30 - Medications Medications: Current Medications Aspirin (Ecotrin) 81 mg PO DAILY [facility] Last Admin: 03/02/17 10:54 Dose: 81 mg Digoxin (Lanoxin) 0.125 mg PO DAILY@1800 [facility] Last Admin: 03/01/17 17:34 Dose: 0.125 mg Diltiazem HCl (Cardizem) 30 mg PO Q8 [facility] Last Admin: 03/02/17 06:11 Dose: 30 mg Heparin Sodium (Porcine) (Heparin) 3,000 units SC Q12 [facility] Last Admin: 03/02/17 10:53 Dose: 3,000 units Levothyroxine Sodium (Synthroid) 75 mcg PO DAILY@0630 [facility] Last Admin: 03/02/17 06:10 Dose: 75 mcg Pantoprazole Sodium (Protonix Inj) 40 mg IVP DAILY [facility] Last Admin: 03/02/17 10:53 Dose: 40 mg Pneumococcal Polyvalent Vaccine (Pneumovax 23 Vaccine) 0.5 ml IM .ONCE ONE Stop: 03/03/17 10:01 Rosuvastatin Calcium (Crestor) 10 mg PO HS [facility] Last Admin: 03/01/17 21:27 Dose: 10 mg - Labs Labs: 02/28/17 22:52 PT 11.1 SECONDS (9.7-12.2) 02/28/17 16:52 INR 1.0 02/28/17 16:52 APTT 21 SECONDS (21-34) D 03/01/17 19:19
[2017-03-02 14:16] LABS: BASO % 0.4 % (0.0-2.0); EOS # 0.1 K/uL (0.0-0.7); EOS % 2.2 % (0.0-4.0); HEMATOCRIT 34.5 % (34.0-47.0); LYMPH # 2.1 K/uL (1.0-4.3); LYMPH % 45.5 % (20.0-40.0); MEAN CELL VOLUME 86.1 fL (81.0-99.0); MEAN CORPUSCULAR HEMOGLOBIN 29.2 pg (27.0-31.0); MEAN CORPUSCULAR HGB CONC 33.9 g/dL (33.0-37.0); MEAN PLATELET VOLUME 8.1 fL (7.2-11.7); MONO # 0.4 K/uL (0.0-0.8); MONO % 9.4 % (0.0-10.0); NRBC % 0.1 % (0.0-2.0); RED CELL DISTRIBUTION WIDTH 14.9 % (11.5-14.5); WHITE BLOOD COUNT 4.7 K/uL (4.8-10.8)
[2017-03-02 15:05] LABS: CHLORIDE 103 mmol/L (98-107); POTASSIUM 3.1 mmol/L (3.6-5.2); SODIUM 140 mmol/L (132-148)
[2017-03-02 15:07] LABS: ALKALINE PHOSPHATASE 52 U/L (38-126); ALT/SGPT 18 U/L (9-52); AST/SGOT 21 U/L (14-36); BILIRUBIN,TOTAL 0.9 mg/dL (0.2-1.3); BLOOD UREA NITROGEN 11 mg/dL (7-17); CARBON DIOXIDE 28 mmol/L (22-30); GFR AFRICAN-AMERICAN > 60; GLUCOSE,RANDOM 87 mg/dL (65-105); TOTAL PROTEIN 6.7 g/dL (6.3-8.3)
[2017-03-02 15:08] LABS: CALCIUM 8.4 mg/dl (8.6-10.4); MAGNESIUM 2.1 mg/dL (1.6-2.3)
[2017-03-02] MEDS: Potassium Chloride 20 mEq ER Tab PO SCH ×2 (16:34→18:42)
[2017-03-02] MEDS: Digoxin 125 mcg (0.125 mg) Tab PO SCH (18:42)
[2017-03-02 18:43] VITALS: PULSE 69
--- NOTE | 2017-03-02 19:32 | PN ---
DATE: 03/02/2017 SUBJECTIVE: The patient is seen and examined at bedside. The patient is feeling much better. Denies any complaints of chest pain, nausea, vomiting, or any abdominal pain. All other systems reviewed and were found to be negative. PHYSICAL EXAMINATION: GENERAL: An elderly female lying in bed, in no acute distress. VITAL SIGNS: Blood pressure 109/64, pulse 73, respirations 18, temperature 97.9 degree Fahrenheit, O2 sat 97% on room air. HEENT: Pupils equal, round, and reacting to light and accommodation. Extraocular muscles intact. No icterus. No pallor. No oral thrush. No pharyngeal congestion. NECK: Supple. No JVD. LUNGS: Bilateral vesicular breath sounds. No wheezing. No rhonchi. CVS: S1, S2 present, regular. ABDOMEN: Soft, nontender. Bowel sounds present. No guarding. No rigidity. No rebound tenderness noted. WILLOW ANALYST: Alert, awake, and oriented x3. No focal deficits noted. EXTREMITIES: No edema. Palpable peripheral pulses. MEDICATIONS: Include aspirin 81 mg daily, digoxin 0.125 mg p.o. daily, Cardizem 30 mg p.o. q.8 hours, heparin 3000 units subcutaneous q.12 hours, Synthroid 75 mcg daily, Protonix 40 mg IV push daily, Crestor 10 mg p.o at bedtime. LABORATORY DATA: Labs done today, WBC 12.7, hemoglobin 11.7, hematocrit 34.5 and platelets 282. Sodium 140, potassium 3.1, chloride 103, bicarbonate 28, BUN 11, creatinine 0.7, glucose 87, calcium 8.4 and magnesium 2.1, AST 21, ALT 18, alkaline phosphatase 52. Cardiac enzymes x3 negative. Total protein 6.7, albumin 3.3. Triglycerides 77, cholesterol 128, LDL 47, HDL 64. TSH 8.89. Digoxin less than 0.04. Echocardiogram done results pending. ASSESSMENT AND PLAN: Elderly female with past medical history of hypertension, hyperlipidemia, hypothyroidism, osteoarthritis, paroxysmal atrial fibrillation, admitted for chest pain probably secondary to hiatal hernia, status post colonic resection about year ago with colostomy bag in place. The patient is ruled out for any acute myocardial infarction. The patient's symptoms improved with Protonix and the patient was started on baby aspirin. The patient was supplemented for hypokalemia and hypomagnesemia. Cardiology consult appreciated. Discussed with the patient and patient's son at length. Cardiology recommended long-term anticoagulation with Eliquis. The patient's son had some concerns and questions regarding the medications, he wanted to talk to cardiology and clarify all his questions prior to starting the patient on long-term anticoagulation. I will follow up with echo report. Follow up with cardiology regarding the plan. As the TSH is elevated, we will increase Synthroid to 88 mcg. If cleared by cardiology, we will plan the discharging the patient home and advised the patient to follow up with gastroenterology and surgery as outpatient. Ulysses Torres MD
--- NOTE | 2017-03-02 21:55 | CARD ---
APPROVED REPORT EXAM: Two-dimensional and M-mode echocardiogram with Doppler and color Doppler. Other Information Quality : GoodRhythm : NSR INDICATION Pleural Effusion Chest Pain RISK FACTORS Hypertension Hyperlipidemia M-Mode DIMENSIONS Left Atrium (MM)3.04 (2.5-4.0cm)IVSd0.75 (0.7-1.1cm) Aortic Root2.76 (2.2-3.7cm)LVDd4.60 (4.0-5.6cm) Aortic Cusp Exc.1.67 (1.5-2.0cm)PWd0.67 (0.7-1.1cm) FS (%) 35 %LVDs3.00 (2.0-3.8cm) LVEF (%)64 (>50%) Aortic Valve AI P 1/2 [id number] Mitral Valve MV E Ujelokqe70.3cm/sMV A Sqmoqfos47.5cm/sE/A ratio0.9 TDI E/Lateral E'0.0E/Medial E'0.0 Tricuspid Valve TR Peak [id number]/sTR Peak Gr.[id number] LEFT VENTRICLE The left ventricle is normal size. There is normal left ventricular wall thickness. Left ventricle systolic function is normal. The Ejection Fraction is 60-65%. There is normal LV segmental wall motion. Transmitral Doppler flow pattern is Grade I-abnormal relaxation pattern. There is no ventricular septal defect visualized. RIGHT VENTRICLE The right ventricle is normal size. The right ventricular systolic function is normal. ATRIA The left atrium is mildly dilated. The right atrium size is normal. AORTIC VALVE The aortic valve is mildly sclerotic. The aortic valve is tri-cuspid. There is mild to moderate aortic regurgitation. There is no aortic valvular stenosis. MITRAL VALVE Mitral annular calcification is mild. There is no evidence of mitral valve prolapse. Mitral regurgitation is mild to moderate. TRICUSPID VALVE The tricuspid valve is normal in structure. There is trace tricuspid regurgitation. Right ventricular systolic pressure is estimated at 30-40 mmHg. There is mild pulmonary hypertension. PULMONIC VALVE The pulmonary valve is normal in structure. There is trace pulmonic valvular regurgitation. GREAT VESSELS The aortic root is normal in size. The ascending aorta is normal in size. The IVC is normal in size and collapses >50% with inspiration. PERICARDIAL EFFUSION There is no pericardial effusion. There is pleural effusion. <Conclusion> Left ventricle systolic function is normal. The Ejection Fraction is 60-65%. Transmitral Doppler flow pattern is Grade I-abnormal relaxation pattern. There is mild to moderate aortic regurgitation. Mitral regurgitation is mild to moderate. There is mild pulmonary hypertension.
--- NOTE | 2017-03-03 00:11 | CP.PCM.PN ---
Subjective - Date & Time of Evaluation Date of Evaluation: 03/02/17 Time of Evaluation: 18:30 - Subjective Subjective: Patient seen and evaluated D/W Patient and the son at bed side Patient would like to start Eliquis Understand the risk of bleeding Start Eliquis 2.5 mg po bid Will D/C ASA and Digoxin Objective - Vital Signs/Intake and Output Vital Signs (last 24 hours): Temp Pulse Resp BP Pulse Ox 97.9 F 73 18 109/64 97 03/02/17 15:52 03/02/17 15:52 03/02/17 15:52 03/02/17 15:52 03/02/17 15:52 Intake and Output: 03/02/17 03/03/17 18:59 06:59 Intake Total 300 Balance 300 - Medications Medications: Current Medications Aspirin (Ecotrin) 81 mg PO DAILY [facility] Last Admin: 03/02/17 10:54 Dose: 81 mg Digoxin (Lanoxin) 0.125 mg PO DAILY@1800 [facility] Last Admin: 03/02/17 18:42 Dose: 0.125 mg Diltiazem HCl (Cardizem) 30 mg PO Q8 [facility] Last Admin: 03/02/17 22:27 Dose: 30 mg Heparin Sodium (Porcine) (Heparin) 3,000 units SC Q12 [facility] Last Admin: 03/02/17 22:49 Dose: Not Given Levothyroxine Sodium (Synthroid) 88 mcg PO DAILY@0630 [facility] Pantoprazole Sodium (Protonix Inj) 40 mg IVP DAILY [facility] Last Admin: 03/02/17 10:53 Dose: 40 mg Pneumococcal Polyvalent Vaccine (Pneumovax 23 Vaccine) 0.5 ml IM .ONCE ONE Stop: 03/03/17 10:01 Rosuvastatin Calcium (Crestor) 10 mg PO HS [facility] Last Admin: 03/02/17 22:37 Dose: 10 mg - Labs Labs: 03/02/17 14:02 03/02/17 14:02 PT 11.1 SECONDS (9.7-12.2) 02/28/17 16:52 INR 1.0 02/28/17 16:52 APTT 21 SECONDS (21-34) D 03/01/17 19:19 - Head Exam Head Exam: ATRAUMATIC, NORMAL INSPECTION - Eye Exam Eye Exam: EOMI, PERRL Pupil Exam: NORMAL ACCOMODATION - ENT Exam ENT Exam: Mucous Membranes Moist, Normal Exam - Neck Exam Neck Exam: Full ROM, Normal Inspection - Respiratory Exam Respiratory Exam: Clear to Ausculation Bilateral, NORMAL BREATHING PATTERN - Cardiovascular Exam Cardiovascular Exam: Irregular Rhythm, +S1, +S2 - GI/Abdominal Exam GI & Abdominal Exam: Soft, Normal Bowel Sounds - Extremities Exam Extremities Exam: Full ROM - Back Exam Back Exam: NORMAL INSPECTION - Neurological Exam Neurological Exam: Alert, CN II-XII Intact, Oriented x3 - Psychiatric Exam Psychiatric exam: Normal Mood - Skin Skin Exam: Warm Assessment and Plan - Assessment and Plan (Free Text) Assessment: 1. Paraxysmal A Fib 2. HTN Recommend Eliquis 2.5 po bid and chnage Cardizem CD 120 mg po daily Cardiac point of view stable
[2017-03-03] MEDS: Levothyroxine 88 MCG TAB PO SCH (06:42)
[2017-03-03] MEDS ORDERED: Pneumococcal 23-Valent Vaccine IM ONE (10:00)
--- NOTE | 2017-03-03 11:26 | CP.PCM.PN ---
Subjective - Date & Time of Evaluation Date of Evaluation: 03/03/17 Time of Evaluation: 11:20 - Subjective Subjective: Progress note dictated #[id number] Objective - Vital Signs/Intake and Output Vital Signs (last 24 hours): Temp Pulse Resp BP Pulse Ox 97.4 F L 70 20 157/90 H 99 03/03/17 08:51 03/03/17 08:51 03/03/17 08:51 03/03/17 08:51 03/03/17 08:51 - Medications Medications: Current Medications Apixaban (Eliquis) 2.5 mg PO BID [facility] Last Admin: 03/03/17 11:05 Dose: 2.5 mg Diltiazem HCl (Cardizem) 30 mg PO Q8 [facility] Last Admin: 03/03/17 06:42 Dose: 30 mg Levothyroxine Sodium (Synthroid) 88 mcg PO DAILY@0630 [facility] Last Admin: 03/03/17 06:42 Dose: 88 mcg Pantoprazole Sodium (Protonix Inj) 40 mg IVP DAILY [facility] Last Admin: 03/03/17 11:05 Dose: 40 mg Rosuvastatin Calcium (Crestor) 10 mg PO HS [facility] Last Admin: 03/02/17 22:37 Dose: 10 mg - Labs Labs: PT 11.1 SECONDS (9.7-12.2) 02/28/17 16:52 INR 1.0 02/28/17 16:52 APTT 21 SECONDS (21-34) D 03/01/17 19:19
[2017-03-03 14:03] LABS: BLOOD UREA NITROGEN 11 mg/dL (7-17); CALCIUM 8.5 mg/dl (8.6-10.4); CARBON DIOXIDE 29 mmol/L (22-30); CHLORIDE 102 mmol/L (98-107); GFR AFRICAN-AMERICAN > 60; GLUCOSE,RANDOM 115 mg/dL (65-105); POTASSIUM 4.1 mmol/L (3.6-5.2); SODIUM 141 mmol/L (132-148)
--- NOTE | 2017-03-03 17:32 | CARD ---
APPROVED REPORT EKG Measurement Heart [id number] <Conclusion> Atrial fibrillation Abnormal ECG
--- NOTE | 2017-03-03 20:29 | PN ---
DATE: 03/03/2017 SUBJECTIVE: The patient was seen and examined at bedside. The patient is feeling much better. Denies any headache or dizziness. Chest pain is better, improving. No nausea or vomiting. Denies any abdominal pain, diarrhea or constipation. Denies any urinary complaints. All other systems reviewed and were found to be negative. PHYSICAL EXAMINATION: GENERAL: On examination, elderly female lying in bed, in no acute distress. VITAL SIGNS: Blood pressure 120/71, pulse 74, respirations 20, temperature 98.2 degree Fahrenheit and O2 sats 96% on room. HEENT: Pupils equal, round, reacting to light and accommodation. Extraocular muscles intact. No icterus. No pallor. No oral thrush. No pharyngeal congestion. NECK: Supple. No JVD. No thyromegaly. CHEST: Moving equally bilaterally on respiration. LUNGS: Bilateral vesicular breath sounds. No wheezing. No rhonchi. CVS: S1 and S2 present, regular. ABDOMEN: Soft and nontender. Bowel sounds present. No guarding. No rigidity. No rebound tenderness noted. AIRCRAFT CHARTER DISPATCHER: Alert, awake and oriented x3. No focal deficits noted. EXTREMITIES: No edema. Palpable peripheral pulses. MEDICATIONS: Include Eliquis 2.5 mg p.o. b.i.d., Cardizem 30 mg p.o. q. 8 hours, Synthroid 88 mcg daily, Protonix 40 mg daily and Crestor 10 mg at bedtime. LABORATORY DATA: Labs from today; sodium 141, potassium 4.1, chloride 102, bicarb 29, BUN 11, creatinine 0.7, glucose 115 and calcium 8.5. Echocardiogram consistent with left ventricular systolic function normal, ejection fraction of 60%-65%, [id number] aortic regurgitation and mitral regurgitation is [id number]. There is mild pulmonary hypertension. ASSESSMENT AND PLAN: Elderly female with history of hypertension, atrial fibrillation, hypothyroidism, hyperlipidemia, osteoarthritis, admitted for chest pain, acute coronary syndrome, ruled out chest pain probably secondary to hiatal hernia. The patient is started on Eliquis for paroxysmal atrial fibrillation after prolonged discussion with the patient and the patient's son. I will monitor the patient for any side effects or the complications from anti-coagulation. If patient is hemodynamically stable and cleared by cardiology, we will plan discharging the patient home in a.m. and discuss the same with the patient and patient's son who is at bedside. Ulysses Torres MD [facility] # [id number]
--- NOTE | 2017-03-04 05:53 | CP.PCM.PN ---
Subjective - Date & Time of Evaluation Date of Evaluation: 03/03/17 Time of Evaluation: 18:20 - Subjective Subjective: Patient without events No chest pain, dyspnea or bleeding episodes Objective - Vital Signs/Intake and Output Vital Signs (last 24 hours): Temp Pulse Resp BP Pulse Ox 98.3 F 65 20 145/74 98 03/03/17 23:10 03/04/17 01:00 03/03/17 23:10 03/03/17 23:10 03/03/17 23:10 - Medications Medications: Current Medications Apixaban (Eliquis) 2.5 mg PO BID [facility] Last Admin: 03/03/17 20:40 Dose: 2.5 mg Diltiazem HCl (Cardizem) 30 mg PO Q8 [facility] Last Admin: 03/03/17 21:31 Dose: 30 mg Levothyroxine Sodium (Synthroid) 88 mcg PO DAILY@0630 [facility] Last Admin: 03/03/17 06:42 Dose: 88 mcg Pantoprazole Sodium (Protonix Inj) 40 mg IVP DAILY [facility] Last Admin: 03/03/17 11:05 Dose: 40 mg Rosuvastatin Calcium (Crestor) 10 mg PO HS [facility] Last Admin: 03/03/17 21:31 Dose: 10 mg - Labs Labs: 03/03/17 13:47 PT 11.1 SECONDS (9.7-12.2) 02/28/17 16:52 INR 1.0 02/28/17 16:52 APTT 21 SECONDS (21-34) D 03/01/17 19:19 - Head Exam Head Exam: ATRAUMATIC, NORMAL INSPECTION - Eye Exam Eye Exam: EOMI, PERRL Pupil Exam: NORMAL ACCOMODATION - ENT Exam ENT Exam: Mucous Membranes Moist, Normal Exam - Neck Exam Neck Exam: Full ROM - Respiratory Exam Respiratory Exam: Clear to Ausculation Bilateral, NORMAL BREATHING PATTERN - Cardiovascular Exam Cardiovascular Exam: REGULAR RHYTHM, +S1, +S2 - GI/Abdominal Exam GI & Abdominal Exam: Soft, Normal Bowel Sounds - Neurological Exam Neurological Exam: Alert, Awake, CN II-XII Intact, Oriented x3 - Psychiatric Exam Psychiatric exam: Normal Mood - Skin Skin Exam: Warm Assessment and Plan - Assessment and Plan (Free Text) Assessment: 1. Paraxysmal A Fib 2. HTN 3. Hypothyroidism 4. Hyperlipidemia Continue Eliquis 2,5 mg po bid Cardizem 120mg po daily
[2017-03-04] MEDS: Levothyroxine 88 MCG TAB PO SCH (06:44)
[2017-03-04 07:37] LABS: BASO % 0.8 % (0.0-2.0); EOS # 0.1 K/uL (0.0-0.7); EOS % 3.2 % (0.0-4.0); HEMATOCRIT 35.3 % (34.0-47.0); LYMPH # 1.9 K/uL (1.0-4.3); LYMPH % 41.5 % (20.0-40.0); MEAN CORPUSCULAR HEMOGLOBIN 29.2 pg (27.0-31.0); MEAN CORPUSCULAR HGB CONC 33.6 g/dL (33.0-37.0); MEAN PLATELET VOLUME 7.9 fL (7.2-11.7); MONO # 0.3 K/uL (0.0-0.8); MONO % 7.1 % (0.0-10.0); NRBC % 0.2 % (0.0-2.0); RED CELL DISTRIBUTION WIDTH 14.4 % (11.5-14.5); WHITE BLOOD COUNT 4.5 K/uL (4.8-10.8)
[2017-03-04 08:07] VITALS: RESP 18
[2017-03-04] MEDS ORDERED: diltiaZEM 120 mg/24 Hours CD Cap PO SCH (10:00)
--- NOTE | 2017-03-04 10:23 | CP.PCM.PN ---
Subjective - Date & Time of Evaluation Date of Evaluation: 03/04/17 Time of Evaluation: 09:50 - Subjective Subjective: Discharge summary dictated #[id number] Objective - Vital Signs/Intake and Output Vital Signs (last 24 hours): Temp Pulse Resp BP Pulse Ox 98.5 F 69 18 184/94 H 98 03/04/17 08:06 03/04/17 08:06 03/04/17 08:06 03/04/17 08:06 03/04/17 08:06 - Medications Medications: Current Medications Apixaban (Eliquis) 2.5 mg PO BID [facility] Last Admin: 03/03/17 20:40 Dose: 2.5 mg Diltiazem HCl (Cardizem Cd) 120 mg PO DAILY [facility] Levothyroxine Sodium (Synthroid) 88 mcg PO DAILY@0630 [facility] Last Admin: 03/04/17 06:44 Dose: 88 mcg Pantoprazole Sodium (Protonix Inj) 40 mg IVP DAILY [facility] Last Admin: 03/03/17 11:05 Dose: 40 mg Rosuvastatin Calcium (Crestor) 10 mg PO HS [facility] Last Admin: 03/03/17 21:31 Dose: 10 mg - Labs Labs: 03/04/17 07:26 03/03/17 13:47 PT 11.1 SECONDS (9.7-12.2) 02/28/17 16:52 INR 1.0 02/28/17 16:52 APTT 21 SECONDS (21-34) D 03/01/17 19:19
[2017-03-04 14:26] VITALS: BP 98/56; PULSE 72; TEMP 98.2; O2SAT 97
--- NOTE | 2017-03-04 23:22 | CP.PCM.PN ---
Subjective - Date & Time of Evaluation Date of Evaluation: 03/04/17 Time of Evaluation: 11:10 - Subjective Subjective: Patient seen and evaluated Comfortable Objective - Vital Signs/Intake and Output Vital Signs (last 24 hours): Temp Pulse Resp BP Pulse Ox 98.2 F 72 18 98/56 L 97 03/04/17 14:25 03/04/17 14:25 03/04/17 14:25 03/04/17 14:25 03/04/17 14:25 Intake and Output: 03/04/17 03/05/17 18:59 06:59 Intake Total 350 Balance 350 - Labs Labs: 03/04/17 07:26 03/03/17 13:47 PT 11.1 SECONDS (9.7-12.2) 02/28/17 16:52 INR 1.0 02/28/17 16:52 APTT 21 SECONDS (21-34) D 03/01/17 19:19 - Head Exam Head Exam: ATRAUMATIC, NORMAL INSPECTION - Eye Exam Eye Exam: EOMI, PERRL Pupil Exam: NORMAL ACCOMODATION - ENT Exam ENT Exam: Mucous Membranes Moist - Neck Exam Neck Exam: Full ROM, Normal Inspection - Respiratory Exam Respiratory Exam: Clear to Ausculation Bilateral, NORMAL BREATHING PATTERN - Cardiovascular Exam Cardiovascular Exam: Irregular Rhythm, +S1, +S2 - GI/Abdominal Exam GI & Abdominal Exam: Soft, Normal Bowel Sounds - Extremities Exam Extremities Exam: Full ROM, Normal Capillary Refill - Neurological Exam Neurological Exam: Alert, Awake, Oriented x3 - Psychiatric Exam Psychiatric exam: Normal Mood - Skin Skin Exam: Warm Assessment and Plan - Assessment and Plan (Free Text) Assessment: 1. A Fib 2. HTN Patient on Eliquis 2.5 mg po bid
--- NOTE | 2017-03-05 05:22 | DS ---
DISCHARGE DIAGNOSES: 1. Chronic paroxysmal atrial fibrillation. 2. Hypertension. 3. Hyperlipidemia. 4. Hypothyroidism. 5. Osteoarthritis. 6. Hiatal hernia. 7. Hypokalemia. 8. Hypomagnesemia. HISTORY OF PRESENT ILLNESS: Ms. Wagner is an 89-year-old female with past medical history of hypertension, hyperlipidemia, hypothyroidism, osteoarthritis, and hiatal hernia. Admitted for retrosternal chest pain radiating to the back and patient is being admitted for further management. Today, patient is feeling much better. Denies any headaches, or dizziness. Denies any chest pain. Shortness of breath, or wheezing. Denies any nausea, vomiting, abdominal pain, diarrhea, or constipation. Denies any urinary complaints. Denies any leg pains or leg cramps. Denies any other neurologic symptoms. All other systems reviewed and were found to be negative. PHYSICAL EXAMINATION: GENERAL: Elderly female, lying in bed, in no acute distress. VITAL SIGNS: Blood pressure 124/74, pulse 70, respirations 18, temperature 98.1 degrees Fahrenheit, and O2 sat is 98% on room air. HEENT: Pupils equal, round, and reacting to light and accommodation. Extraocular muscles intact. No icterus. No pallor. No oral thrush. No pharyngeal congestion. NECK: Supple. No JVD. LUNGS: Bilateral vesicular breath sounds. No wheezing, no rhonchi. CVS: S1 and S2 present and regular. ABDOMEN: Soft and nontender. Bowel sounds are present. No guarding. No rigidity. No rebound tenderness noted. CENTRAL NERVOUS SYSTEM: Alert, awake, and oriented x3. No focal deficits noted. EXTREMITIES: No edema. LABORATORY DATA: Labs from this morning, WBC 4.5, hemoglobin 11.9, hematocrit 35.3 and platelet 330. Sodium 141, potassium 4.1, chloride 102, bicarbonate 29, BUN 11, creatinine 0.7, glucose 115 and calcium 8.5. Triglycerides 77, cholesterol 128, LDL 47 and HDL 64. TSH 8.89. Echocardiogram with normal EF at 60%-65% mild to moderate aortic regurgitation, mild to moderate mitral regurgitation, and mild pulmonary hypertension. HOSPITAL COURSE: The patient was admitted to telemetry. Patient had three sets of cardiac enzymes negative. No acute EKG changes. Patient had paroxysmal atrial fibrillation. The patient was evaluated by cardiology. Recommended detention anticoagulation with Eliquis 2.5 mg p.o. b.i.d. After prolonged discussion with patient and patient's son she agreed to start the medications. The patient was observed for one day for any side effects. The patient remains stable. Hospital course is complicated by hypokalemia, hypomagnesemia, which were replace and her TSH is most likely elevated. Her Synthroid increased from 75 to 88 mcg daily. The patient's blood pressure medications were changed from Cardizem CD 120 mg p.o. once daily. The patient is discontinued from aspirin as she is on Eliquis. Advised patient to return to the ED if any signs of bleeding or any other side effects occur. CONDITION UPON DISCHARGE: The patient is alert, awake, oriented x3 and hemodynamically stable at the time of discharge. DISCHARGE INSTRUCTIONS: Follow up with PMD, follow up with cardiology. DISCHARGE DIET: Heart healthy diet. ACTIVITY: As tolerated. Please also refer to discharge instruction sheet given at the time of discharge. Ulysses Torres MD
== END 2017-03-04 17:25 | disposition home or self-care (01) | DRG 313 ==
LOC: C.ER 15:44 → C.9E 21:08 → C.6T 22:07 → OBSVTOIN 03-03 10:57
PROVIDERS: ADMIT Internal Medicine; ATTEND Internal Medicine
DX: R07.89 Other chest pain (principal); I48.0 Paroxysmal atrial fibrillation; E87.6 Hypokalemia; E83.42 Hypomagnesemia; I48.2 Chronic atrial fibrillation; I10 Essential (primary) hypertension; E03.9 Hypothyroidism, unspecified; M19.90 Unspecified osteoarthritis, unspecified site; E78.00 Pure hypercholesterolemia, unspecified; E78.5 Hyperlipidemia, unspecified; K44.9 Diaphragmatic hernia without obstruction or gangrene; Z79.01 Long term (current) use of anticoagulants; Z79.82 Long term (current) use of aspirin; Z90.49 Acquired absence of other specified parts of digestive tract; Z93.3 Colostomy status